=== PATIENT | female | born 1975 | race Caucasian/White ===

== ENCOUNTER 2020-05-12 04:38 | Emergency (ER) | payer OTHER, SELFPAY ==
[2020-05-12 04:40] VITALS: BP 155/78; PULSE 103; RESP 14; TEMP 36.8; O2SAT 99
[2020-05-12] MEDS: HYDROcodone/acetaminophen (*CRX) 5-325 MG TABLET 1 TAB PO (05:08)
--- NOTE | 2020-05-12 05:11 | ED.GENADULT ---
HPI - General Adult General Chief complaint: Upper Respiratory Infection Stated complaint: Sinus pain Time Seen by Provider: 05/12/20 04:43 History of Present Illness HPI narrative: Patient is a 45-year-old female who presents the ER with facial pain. Patient diagnosed with a sinus infection by urgent care 3 days ago. She is taking doxycycline and ibuprofen and pain is still present in the left maxillary sinus. Refers to her ear on the left side. No change in vision or hearing. Patient is able to breathe through her nose and has been using saline nasal spray and Zyrtec. She is unable to sleep tonight and would like something to help with her pain. Related Data Allergies Allergy/AdvReac Type Severity Reaction Status Date / Time Penicillins Allergy Unknown Hives Verified 05/12/20 04:44 clarithromycin Allergy Unknown Verified 05/12/20 04:44 Macrolide Antibiotics Allergy Unknown Verified 05/12/20 04:44 Review of Systems Constitutional: Constitutional: Denies chills and Denies fever(s) ENT: Reports nasal congestion and Denies sore throat PMFSH Past Medical History Medical History (Updated 05/12/20 @ 05:14 by Abe Ball MD) Healthy female adult Surgical History Surgical History (Updated 05/12/20 @ 05:12 by Abe Ball MD) History of section Social History Social History Gender identity (if verbalized by the patient): Female Exam Narrative: Exam Narrative: GENERAL: Well-appearing, well-nourished, and in no acute distress. HEAD: Normocephalic, atraumatic. ENT: Nares clear, no rhinorrhea or epistaxis. Mucous membranes moist. TMs normal bilaterally. Mild left maxillary and frontal sinus tenderness NEURO: Alert and oriented x3. PSYCH: Normal mood and affect. Course Course Emergency Course: codie d/c. Vital Signs Vital signs: Vital Signs Temperature 98.2 F 05/12/20 04:40 Pulse Rate 103 H 05/12/20 04:40 Respiratory Rate 14 05/12/20 04:40 Blood Pressure 155/78 H 05/12/20 04:40 Pulse Oximetry 99 05/12/20 04:40 Temperature 98.2 F 05/12/20 04:40 Pulse Rate 103 H 05/12/20 04:40 Respiratory Rate 14 05/12/20 04:40 Blood Pressure 155/78 H 05/12/20 04:40 Pulse Oximetry 99 05/12/20 04:40 Medical Decision Making Vital Signs Vital Signs: Vital Signs Temperature 98.2 F 05/12/20 04:40 Pulse Rate 103 H 05/12/20 04:40 Respiratory Rate 14 05/12/20 04:40 Blood Pressure 155/78 H 05/12/20 04:40 Pulse Oximetry 99 05/12/20 04:40 Temperature 98.2 F 05/12/20 04:40 Pulse Rate 103 H 05/12/20 04:40 Respiratory Rate 14 05/12/20 04:40 Blood Pressure 155/78 H 05/12/20 04:40 Pulse Oximetry 99 05/12/20 04:40 Discharge Plan Discharge Clinical Impression: Sinus pain Patient Disposition: Home, Self-Care Condition: Stable Instructions: Sinusitis (ED) Additional Instructions: Return to the ER if you cannot breathe, you have facial swelling, or you have other concerns. Take Tylenol and ibuprofen as needed for pain. Follow-up/Referrals: Natalia Deluca MD [Primary Care Provider] -
== END 2020-05-12 05:37 | disposition home or self-care (01) ==
PROVIDERS: Emergency Provider Emergency Medicine; PCP Obstetrics & Gynecology Gynecology
DX: J34.89 Other specified disorders of nose and nasal sinuses (principal)
CPT/HCPCS: 99283; A9270

== ENCOUNTER 2021-07-10 00:46 | Day surgery (SDC) | payer OTHER, SELFPAY ==
[2021-07-05 14:16] VITALS: BMI 25.1
--- NOTE | 2021-07-05 14:25 | PC.NURSE ---
Report to the Outpatient Waiting Room, entrance under the green pavilion located off [facility], at time 0615 on date 07/10/21. OR Time: 0815. - You and your visitor will be asked a series of questions to screen for COVID 19 for your protection. - A mask is required within the hospital. - Only one visitor is allowed at this time. Patient visitors will be guided where to wait when not with patient. Preoperative COVID Testing Requirements: No COVID Test needed if: (proof is required; if not received patient will have Rapid Test prior to entry) - Patient has received COVID Vaccine at least 14 days prior to procedure date or - Patient has positive COVID test result within last 90 days of surgery date. COVID Test needed if above criteria is not met If not COVID vaccinated a COVID test must be conducted within 72 hours of surgery and patient is asked to isolate self from time of testing until procedure. You will go to the [facility] for your COVID testing. The [facility] site is located at the corner of [address] [facility]. You will only be called if COVID results are positive and your surgeon may reschedule your elective surgery date. Patients may have clear liquids (water, carbonated beverages, clear teas, apple juice) until 3 hours prior to surgery with a maximum of 20 ounces. - No food from midnight until time of surgery - Infants may have breast milk until 4 hours before surgery, infant formula 6 hours prior to surgery. - Children will be allowed to drink immediately following surgery. If applicable, please bring a bottle or sippy cup to assist with drinking. Juice, water, soda, and popsicles are readily available. For infants on formula, please bring formula the day of surgery. Pacifiers are allowed. Take the following medications with a SIP of water the morning of surgery: LEVOXYL, EFFEXOR, WELLBUTRIN, VALTREX, INSULIN PUMP Medications to discontinue per physician: VITAMINS/SUPPLEMENTS Date to take last dose: 07/06/[address] GIRALDO Please no make-up, nail upper sorbian, hairspray, perfume, deodorant, or body powder the day of surgery. No jewelry (including any body piercings) or valuables the day of surgery, leave them at home. Please take a shower or bath the night before, or the morning of, surgery with an antibacterial soap. Wear comfortable, loose fitting clothing. Children are encouraged to wear pajamas. - Jewelry must be removed prior to entering the operating room. Rings and piercings that are not removed may be cut off. - The hospital will not accept responsibility for valuables. - Please leave all valuables, including medications, at home the day of surgery. If you are going home after surgery, a licensed truck driver helper must drive you home. - NO public transportation without another adult. - We recommend that an adult stay with you for 24 hours following discharge. - We also recommend that you do not drive, make important decision, drink alcoholic beverages, or take any drugs that were not prescribed by your health care provider for at least 24 hours after your discharge time. For Pediatric surgeries, we recommend two adults accompany the child home (only one inside the building at this time). Follow any additional instructions given to you from your surgeon. Telephone instructions given to KATHERINE COLLIER and asked if any additional questions and then verbalized understanding. Patient advised to call surgeon office or pre surgery nurse liaison [phone] if any additional questions.
--- NOTE | 2021-07-10 07:03 | WPDHPUPDATE1 ---
History and Physical Update Update Date/Time: 07/10/21 07:03 History and Physical has been reviewed, including an updated exam of the patient. There are NO changes in the patient's condition. Risks, benefits, and alternatives have been discussed and questions answered. Patient agrees to proceed with procedure.
--- NOTE | 2021-07-10 07:03 | PM.HPGS ---
History of Present Illness History of Present Illness Consent: Risks, benefits, and alternatives have been discussed and questions answered. Patient agrees to proceed with procedure. Chief complaint: Ascus Positive Endocervical Cells Narrative: Fadia Harding is a 46 year old female with persistently abnormal Pap smears over the last 5 years. Patient continues to have atypical squamous cells of undetermined significance with positive HPV 16. Recent colposcopy reveals atypia in the endocervix and 5:00 a.m. and 9:00 a.m. biopsies. Due to her difficult vaginal exam the plan is to proceed in the operating room under anesthesia with a LEEP and top-hat. Risks of infection, bleeding, persistent and recurrent disease were reviewed. Patient voices understanding and agrees to proceed. Review of Systems Review of Systems: not repeated day of surgery; patient states no changes in status PMFSH Past Medical History Medical History (Updated 07/10/21 @ 07:08 by Natalia Deluca MD) Depression Hypothyroid Prior hyperthyroid Juvenile rheumatoid arthritis Type 1 diabetes Surgical History Surgical History (Updated 07/10/21 @ 07:07 by Natalia Deluca MD) History of section X2 Social History Social History Smoking status: Never smoker Alcohol intake: current Drinks per week: 4 Substance use: never Substance use type: does not use Living arrangements: with family Gender identity (if verbalized by the patient): Female Spiritual care concerns: No Meds Home Medications and Allergies Home Medications Medication Instructions Recorded Confirmed Type aspirin [Baby Aspirin] 81 mg PO DAILY 07/05/21 07/10/21 History bupropion HCl [Wellbutrin XL] 150 mg PO QAM 07/05/21 07/05/21 History cetirizine [Zyrtec] 10 mg PO DAILY 07/05/21 07/05/21 History insulin lispro [Humalog U-100 See Rx Instructions .ROUTE .COMPLEX 07/05/21 07/05/21 History Insulin] levothyroxine [Levoxyl] 100 mcg PO DAILY 07/05/21 07/05/21 History prenat.vits,vazquez,qwy-htmp-gtbus 1 tablet PO DAILY 07/05/21 07/10/21 History [ Vitamin] valacyclovir [Valtrex] 500 mg PO DAILY 07/05/21 07/05/21 History venlafaxine [Effexor XR] 75 mg PO DAILY 07/05/21 07/05/21 History Allergies Allergy/AdvReac Type Severity Reaction Status Date / Time Penicillins Allergy Unknown Hives Verified 07/10/21 06:58 clarithromycin Allergy Gastrointestinal Verified 07/10/21 06:58 Upset Macrolide Antibiotics Allergy Gastrointestinal Verified 07/10/21 06:58 Upset Exam Const: General: healthy appearing and alert Orientation/consciousness: patient oriented x3 Resp: Effort & Inspection: normal respiratory effort Auscultation: clear to auscultation bilaterally Cardio: Rate: regular rate Rhythm: regular rhythm GI: GI Palp: Yes Soft to palpation, No Tenderness to palpation present (GI) and No Palpable mass present : External Female Exam: normal external appearance Speculum Exam - Vagina: normal vaginal discharge and other (Vaginal adhesions) Speculum Exam - Cervix: normal appearance of the cervix and Other cervical findings present (Difficult to visualize) Bimanual exam- vagina & uterus: uterine size normal and consistency normal Bimanual Exam- Adnexa, other: normal adnexae and No adnexal tenderness Neuro: General: patient oriented x3 Assessment and Plan Assessment and plan (1) ASCUS with positive high risk HPV: Status: Acute Assessment and Plan: Plan to proceed with LEEP and top hat
[2021-07-10] MEDS: ACETAMINOPHEN 500 MG TABLET 1000 MG PO (07:04)
[2021-07-10 07:06] VITALS: BP 134/67; PULSE 109; RESP 18; TEMP 36.1; O2SAT 99
[2021-07-10 07:07] VITALS: BMI 24.2
--- NOTE | 2021-07-10 07:08 | P.PNAN_ITS ---
Anes - Initial Pre Proc Eval Procedure: Operation Date: 07/10/21 08:15 Proposed Procedures p Loop Electrical Excision Procedure, Top Hat - Natalia Deluca MD Date/Time: 07/10/21 07:08 Surgeon: Natalia Deluca MD Pre Op Diagnosis: Ascus Positive Endocervical Cells Patient Data Age: 46 Gender: F Height: 1.75 m Weight: 74.3 kg Last Vital Signs Temp 36.1 C L 07/10/21 07:06 Pulse 109 H 07/10/21 07:06 Resp 18 07/10/21 07:06 BP 134/67 07/10/21 07:06 Pulse Ox 99 07/10/21 07:06 Allergies Allergy/AdvReac Type Severity Reaction Status Date / Time Penicillins Allergy Unknown Hives Verified 07/10/21 06:58 clarithromycin Allergy Gastrointestinal Verified 07/10/21 06:58 Upset Macrolide Antibiotics Allergy Gastrointestinal Verified 07/10/21 06:58 Upset Home Medications Medication Instructions Recorded Confirmed Type aspirin [Baby Aspirin] 81 mg PO DAILY 07/05/21 07/10/21 History bupropion HCl [Wellbutrin XL] 150 mg PO QAM 07/05/21 07/05/21 History cetirizine [Zyrtec] 10 mg PO DAILY 07/05/21 07/05/21 History insulin lispro [Humalog U-100 See Rx Instructions .ROUTE .COMPLEX 07/05/21 07/05/21 History Insulin] levothyroxine [Levoxyl] 100 mcg PO DAILY 07/05/21 07/05/21 History prenat.vits,vazquez,ktl-ukxa-esemf 1 tablet PO DAILY 07/05/21 07/10/21 History [ Vitamin] valacyclovir [Valtrex] 500 mg PO DAILY 07/05/21 07/05/21 History venlafaxine [Effexor XR] 75 mg PO DAILY 07/05/21 07/05/21 History Patient hx anesthesia problems: none Family hx anesthesia problems: none Results Review: All pre-operative results and documents have been reviewed as part of the pre-operative evaluation. [facility] Past Medical History Medical History Depression Hypothyroid Prior hyperthyroid Juvenile rheumatoid arthritis Type 1 diabetes Surgical History Surgical History History of section X2 Social History Social History Smoking status: Never smoker Alcohol intake: current Drinks per week: 4 Substance use: never Substance use type: does not use Living arrangements: with family Gender identity (if verbalized by the patient): Female Spiritual care concerns: No Anes - Eval Final PreProcedure Day of Procedure 07/10/21 07:08 Patient weight: normal Heart: regular rate and rhythm Lungs: clear to auscultation Airway: Mallampati scale class II Neurological: alert and oriented Last oral intake: >/= 8 hours ASA classification: III Emergent: no Anesthetic plan: proceed Anesthesia type and monitoring: general GIVS and standard monitoring Results Review: All pre-operative results and documents have been reviewed as part of the pre-operative evaluation. Informed Consent: The patient's anesthetic plan and its attendant risks and benefits were discussed with the patient/family/POA. Questions were solicited and answers provided to the satisfaction of the patient/family/POA.
[2021-07-10 07:20] LABS: Glucose Point of Care 185 mg/dl (65-105)
[2021-07-10] MEDS: LACTATED RINGERS 1,000 ML 30 ML IV CONT (07:33)
[2021-07-10] MEDS: KETOROLAC 30 MG/ML VIAL (*BKC) IV PUSH (08:37)
--- NOTE | 2021-07-10 08:39 | W.PM.PROC2 ---
Procedure Note - Detailed Date of Procedure 07/10/21 Pre-op Diagnosis Ascus persistent Vaginal adhesions Post-op Diagnosis same Procedure Performed LEEP with top-hat Surgeon Natalia Deluca MD Anesthesia MAC and local Findings Posterior right vaginal adhesions. Very difficult to visualize small nulliparous cervix. Description of Procedure The patient was taken to the operating room and placed under anesthesia in the dorsal lithotomy position. She was prepped externally and draped. Coated bivalve speculum was placed and was noted to be too large. A Gann was requested and only a long appears and could be found. This was too difficult to reach the cervix with the LEEP probe. A pediatric Gann was found and able to be utilized. The cervix was injected in each quadrant with 1% lidocaine. The posterior lip is very difficult to visualize. A 1x1 loop anterior lip and posterior lip were taken. A 1x1 top hat was attempted and due to the size of the cervix only a small portion of endocervix was taken. Monsel's was applied to the cone bed. Specimens were marked at 12:00 p.m. for the anterior and 6:00 a.m. for the posterior lip. All instruments are removed. Patient is awakened from anesthesia and taken to recovery in stable condition. Sponge, needle, and instrument counts are correct per the OR staff. Estimated Blood Loss 5 Drains No Packing No Pathology yes (Anterior and posterior LEEP with top hat) Complications No immediate complications Condition stable Disposition PACU
[2021-07-10] MEDS: LIDO 1%/EPINEPHRINE 1:100,000 50 ML VIAL 10 ML INFILTRATE (08:40)
[2021-07-10 08:44] VITALS: BP 103/47; PULSE 85; RESP 12; O2SAT 100
[2021-07-10 09:12] LABS: Glucose Point of Care 187 mg/dl (65-105)
[2021-07-10 09:15] VITALS: BP 115/65; PULSE 95
[2021-07-10 09:40] VITALS: BP 103/61; PULSE 82
== END 2021-07-10 09:50 | disposition home or self-care (01) ==
PROVIDERS: PCP Internal Medicine; Visit Provider Obstetrics & Gynecology Gynecology
PROC: 0UBC7ZZ Excision of Cervix, Via Natural or Artificial Opening (ICD-10-PCS; CPT 57522; principal; 2021-07-10 08:15)
DX: R87.610 Atypical squamous cells of undetermined significance on cytologic smear of cervix (ASC-US) (principal); R87.810 Cervical high risk human papillomavirus (HPV) DNA test positive; N89.5 Stricture and atresia of vagina; E03.9 Hypothyroidism, unspecified; F32.9 Major depressive disorder, single episode, unspecified; E10.8 Type 1 diabetes mellitus with unspecified complications; M08.00 Unspecified juvenile rheumatoid arthritis of unspecified site; Z79.82 Long term (current) use of aspirin; Z79.4 Long term (current) use of insulin
CPT/HCPCS: 57522; 82948; 88305; A9270; J1885; J2250; J2405; J2704; J3010; J7120

== ENCOUNTER 2022-06-06 08:42 | Emergency (ER) | payer OTHER, SELFPAY ==
--- NOTE | ~2022-06-06 | CT_ITS ---
EXAMINATION: CT abdomen pelvis w con DATE: 06/06/2022 09:34 INDICATION: Epigastric abdominal tenderness. TECHNIQUE: Computed tomography (CT) of the abdomen and pelvis was performed with 100 mL Omnipaque 350 intravenous contrast. Automated exposure control and iterative reconstruction technique were employe d. The dose-length product was 404.87 mGy-cm. COMPARISON: None. FINDINGS: The visualized portions of the lung bases demonstrate mild atelectasis. No pleural effusion . The heart size is normal. No pericardial effusion. There is a 4 mm cyst in the liver. The gallbladd er, spleen, pancreas, adrenal glands, and kidneys are normal. There are no dilated loops of bowel. Th e appendix is normal. There is a jejunal intussusception with length of 3.4 cm. There are no patholog ically enlarged lymph nodes. There is no free intraperitoneal fluid. There is severe lower lumbar spo ndylosis. IMPRESSION: 1. Short jejunal intussusception, which may be transient. Reviewed, dictated and finalized at location A.
[2022-06-06 08:47] VITALS: BP 124/64; PULSE 99; RESP 16; TEMP 36.4; O2SAT 100
[2022-06-06 08:57] LABS: Basophils Absolute Auto 0.1 K/mm3 (0.0-0.1); Basophils Percent Auto 0.5 % (0.2-1.2); Eosinophils Absolute Auto 0.1 K/mm3 (0-0.3); Hemoglobin 15.3 g/dL (12.0-15.0); Immature Granulocyte Absolute 0.03 K/mm3 (0.00-0.031); Immature Granulocyte Percent A 0.3 % (0-0.5); Lymphocytes Absolute Auto 3.12 K/mm3 (0.9-3.2); Lymphocytes Percent Auto 27.5 % (18.3-44.2); Mean Corpuscular HGB Conc 33.3 g/dl (32-36); Mean Corpuscular Hemoglobin 32.2 pg (26-34); Mean Corpuscular Volume 96.8 fl (80-100); Monocytes Absolute Auto 0.7 K/mm3 (0.1-0.6); Monocytes Percent Auto 6.1 % (2.6-8.5); Neutrophils Absolute Auto 7.4 K/mm3 (1.3-6.7); Neutrophils Percent Auto 64.6 % (45.5-73.1); Platelet Count Result 437 k/mm3 (150-375); Red Blood Count 4.75 M/mm3 (4.2-5.4); Red Cell Distribution Width 12.7 % (11.5-14.5); White Blood Count 11.4 K/mm3 (4.5-10.0)
--- NOTE | 2022-06-06 09:06 | ED.ABDPAIN ---
HPI - Abdominal Pain General Chief Complaint: Abdominal Pain Stated Complaint: abdominal pain x 2 days Time Seen by Provider: 06/06/22 08:55 History of Present Illness HPI narrative: Patient is a healthy 47-year-old female with a history of type 1 diabetes, has insulin pump in place, here for evaluation of epigastric abdominal discomfort for the past 2 days. Patient states the pain is intermittent in nature, but when it is there it is severe, causing her to keel over in pain. Described as a cramp, starts in her epigastrium and radiates lower into her suprapubic region. Reports nausea and chills but no vomiting, has taken her temperature and has not had a fever. Bowel movements have been normal. Reports a sharp pain with urination. No urinary urgency, frequency, hematuria, back pain. Related Data Home Medications Medication Instructions Recorded Confirmed aspirin 81 mg chewable tablet 81 mg PO DAILY 07/05/21 07/10/21 bupropion HCl 150 mg 24 hr tablet, 150 mg PO QAM 07/05/21 07/05/21 extended release (Wellbutrin XL) cetirizine 10 mg tablet (Zyrtec) 10 mg PO DAILY 07/05/21 07/05/21 insulin lispro 100 unit/mL See Rx Instructions .Route .COMPLEX 07/05/21 07/05/21 subcutaneous solution (Humalog U-100 Insulin) levothyroxine 100 mcg tablet 100 mcg PO DAILY 07/05/21 07/05/21 (Levoxyl) prenat.vits,vazquez,baj-asix-kddsa 1 tablet PO DAILY 07/05/21 07/10/21 valacyclovir 500 mg tablet 500 mg PO DAILY 07/05/21 07/05/21 (Valtrex) venlafaxine 75 mg capsule,extended 75 mg PO DAILY 07/05/21 07/05/21 release 24 hr (Effexor XR) Allergies Allergy/AdvReac Type Severity Reaction Status Date / Time Penicillins Allergy Unknown Hives Verified 06/06/22 08:43 clarithromycin AdvReac Gastrointestinal Verified 06/06/22 08:43 Upset Macrolide Antibiotics AdvReac Gastrointestinal Verified 06/06/22 08:43 Upset Review of Systems Review of Systems: Gen: Reports chills. Denies fevers Eyes: Denies eye pain or visual change ENT: Denies congestion Respiratory: Denies shortness of breath or cough CV: Denies chest pain or palpitations GI: Reports lower abdominal pain and nausea. Denies emesis or diarrhea : denies burning, urgency, frequency or hematuria Musculoskeletal: Denies back pain or muscle pain Neuro: Denies numbness, tingling, weakness or focal weakness Skin: Denies rash Except as documented, all other systems reviewed and negative PMFSH Past Medical History Medical History Depression Hypothyroid Prior hyperthyroid Juvenile rheumatoid arthritis Type 1 diabetes Surgical History Surgical History History of section X2 Social History Social History Smoking status: Never smoker Alcohol intake: current Drinks per week: 4 Substance use: never Substance use type: does not use Gender identity (if verbalized by the patient): Female Spiritual care concerns: No Exam Narrative: APPEARANCE: Well appearing, no pain in distress, well-nourished. Head: Normocephalic and atraumatic. EYES: PERRLA/EOMI, conjunctivae clear NOSE: No nasal drainage EARS: External ear normal in appearance THROAT: Oropharynx is clear. Mucous membranes are moist. NECK: Supple. No adenopathy, no masses. RESPIRATORY: Airway patent, respirations nonlabored. Clear to auscultation bilaterally, no rales, rhonchi, wheezing. CARDIOVASCULAR: Regular rate and rhythm without murmurs, rubs, or gallops. ABDOMINAL: Normoactive bowel sounds. Soft, nontender, nondistended. No rebound tenderness or guarding. MUSCULOSKELETAL: Extremities are warm and well-perfused. Moves all extremities well. No edema. NEURO: Normal speech. No focal neurologic deficits. SKIN: Skin is warm and dry. No rashes. PSYCHIATRIC: Normal affect/mood. Course Consultations Consulta
[2022-06-06 09:07] LABS: Appearance Urine Cloudy (Clear); Bilirubin Urine 1+ (Negative); Blood Urine 1+ (Negative); Color Urine Yellow (Yellow); Glucose Urine UA 2+ mg/dL (Negative); Ketones Urine 2+ mg/dL (Negative); Leukocyte Esterase Ur 1+ LEU/UL (Negative); Nitrate Urine Negative (Negative); Protein Urine 2+ mg/dL (Negative); Specific Grav Ur 1.025 (1.001-1.035)
[2022-06-06 09:08] LABS: Alanine Aminotransferase 22 U/L (6-35); Alkaline Phosphatase 93 U/L (38-126); Anion Gap 16 mmol/L (8-16); Aspartate Amino Transferase 28 U/L (14-36); Bilirubin,Total 0.8 mg/dL (0.2-1.3); Blood Urea Nitrogen 9 mg/dL (7-17); Calcium 9.1 mg/dL (8.4-10.2); Carbon Dioxide 26 mmol/L (22-30); Chloride 94 mmol/L (98-107); Estimated CRCL calculation 77 ml/min; Estimated Glomerular Filt Rate > 60; Glucose 246 mg/dL (65-110); Lipase 33 U/L (23-300); Potassium 3.2 mmol/L (3.4-5.0); Sodium 136 mmol/L (137-145)
[2022-06-06 09:14] LABS: Bacteria Urine Trace /hpf; Mucus Urine Rare /lpf; Squamous Epithelial Cell Urine Many /hpf (Few); WBC Urine >75 /hpf
[2022-06-06 09:19] LABS: Add Urine Microscopic? YES
[2022-06-06 09:30] LABS: Lactic Acid Reflex 2.3 mmol/L (0.7-2.0)
[2022-06-06] MEDS: SODIUM CHLORIDE 0.9% IV 1,000 ML 999 ML IV CONT (09:37)
[2022-06-06 10:57] LABS: Fractional Inspired Oxygen 21 %; HCO3 VBG 22.7 mEq/l (24.0-30.0); PCO2 VBG 35.5 mmHg (42.0-48.0)
[2022-06-06 10:59] LABS: Device ROOM AIR; PO2 VBG < 27.0 mmHg (35.0-45.0); pH VBG 7.424 (7.300-7.400)
[2022-06-06] MEDS: POTASSIUM CHLORIDE 20 MEQ PACKET (FOR LIQUID) PO (11:16)
[2022-06-06 12:19] LABS: Reflex Lactic Acid Yes or No Add Lactic
== END 2022-06-06 11:10 | disposition home or self-care (01) ==
PROVIDERS: Physician Assistant; Emergency Provider Emergency Medicine; PCP Internal Medicine
DX: N39.0 Urinary tract infection, site not specified (principal); E10.8 Type 1 diabetes mellitus with unspecified complications; E03.9 Hypothyroidism, unspecified; M08.00 Unspecified juvenile rheumatoid arthritis of unspecified site; F32.A Depression, unspecified; Z96.41 Presence of insulin pump (external) (internal); Z79.4 Long term (current) use of insulin; Z79.82 Long term (current) use of aspirin; K56.1 Intussusception
CPT/HCPCS: 36415; 74177; 80053; 81001; 81025; 82803; 83605; 83690; 85025; 87086; 87088; 96360; 99284; A9270; J7030; Q9967

== ENCOUNTER → 2023-04-11 16:03 | Outpatient (CLI) | payer OTHER, SELFPAY ==
--- NOTE | ~2023-04-11 | MM_ITS ---
EXAMINATION: MM screening angy BI w shahid HISTORY: Screening mammogram TECHNIQUE: Craniocaudal and mediolateral oblique 3-D tomosynthesis images were obtained and synthetic 2-D images were generated. CAD analysis was submitted and interpreted. COMPARISON: 03/10/2019 and 04/03/2017 BREAST PARENCHYMAL COMPOSITION:There are scattered areas of fibroglandular density. FINDINGS: Benign lymph nodes at the upper, outer right breast. No suspicious mass, calcification, or architectural distortion are identified in either breast to suggest malignancy. There has been no abad picious interval change. IMPRESSION: No mammographic evidence of malignancy. Recommend routine screening mammography in one year. BI-RADS Category 2: Benign finding(s). Reviewed, dictated and finalized at location .
== END ==
PROVIDERS: PCP Internal Medicine; Visit Provider Internal Medicine
DX: Z12.31 Encounter for screening mammogram for malignant neoplasm of breast (principal)
CPT/HCPCS: 77063; 77067

== ENCOUNTER 2023-10-30 09:41 | Emergency (ER) | payer OTHER, SELFPAY ==
--- NOTE | ~2023-10-30 | XR_ITS ---
EXAMINATION: XR sacrum coccyx min 2V DATE: 10/30/2023 13:07 INDICATION: Tailbone pain post fall TECHNIQUE: Frontal, angled frontal and lateral views of the sacrum and coccyx were obtained. COMPARISON: None. FINDINGS: Bone alignment is normal. Sacral arches are intact. No fractures identified. Mild bilateral sacroilia c osteoarthritis. Moderate disc height loss with left-sided predominance at L5-S1. Bilateral hip join t spaces appear normal. IMPRESSION: 1. No acute osseous abnormality. Reviewed, dictated and finalized at location A.
--- NOTE | ~2023-10-30 | XR_ITS ---
EXAMINATION: XR chest 2V DATE: 10/30/2023 13:06 INDICATION: Bilateral rib pain post fall TECHNIQUE: PA and lateral views of the chest were obtained. COMPARISON: None FINDINGS: The lungs are clear with no focal airspace opacities, pulmonary edema, pleural effusion or pneumothor ax. The cardiomediastinal silhouette is normal. Age indeterminate compression fracture with 50% anter ior vertebral body height loss of an upper thoracic vertebral body, likely at T4 or T5. IMPRESSION: 1. No acute cardiopulmonary disease. 2. Age-indeterminate compression fracture in the upper thoracic spine. Reviewed, dictated and finalized at location A.
--- NOTE | 2023-10-30 09:46 | PC.NURSE ---
Patient placed in c collar d/t fall down approx 7 stairs. Patient reports unsure if she has neck//head pain or tenderness.
--- NOTE | 2023-10-30 09:47 | PC.NURSE ---
Patient lung sounds auscultated. Clear to anterior and posterior lung mills.
[2023-10-30 10:46] VITALS: BP 137/74; PULSE 90; RESP 22; TEMP 36.1; O2SAT 100
[2023-10-30] MEDS: ACETAMINOPHEN 500 MG TABLET 1000 MG PO (12:20)
--- NOTE | 2023-10-30 12:58 | ED.FALL ---
HPI - Fall General Chief Complaint: Fall Stated Complaint: fall down stairs Time Seen by Provider: 10/30/23 12:02 History of Present Illness HPI Narrative: 48-year-old female presenting to the emergency department after having a ground level fall. Patient states she was walking down stairs while wearing socks and fell forward down the stairs. Patient states she did not strike her head denies any loss of consciousness. Patient did complain of bilateral rib pain and tailbone pain after the fall. Patient was able to self extricate after the fall and presented emergency department by private. Related Data Home Medications Medication Instructions Recorded Confirmed aspirin 81 mg chewable tablet 81 mg PO DAILY 07/05/21 07/10/21 bupropion HCl 150 mg 24 hr tablet, 150 mg PO QAM 07/05/21 07/05/21 extended release (Wellbutrin XL) cetirizine 10 mg tablet (Zyrtec) 10 mg PO DAILY 07/05/21 07/05/21 insulin lispro 100 unit/mL See Rx Instructions .Route .COMPLEX 07/05/21 07/05/21 subcutaneous solution (Humalog U-100 Insulin) levothyroxine 100 mcg tablet 100 mcg PO DAILY 07/05/21 07/05/21 (Levoxyl) prenat.vits,vazquez,ovn-anka-cpfzh 1 tablet PO DAILY 07/05/21 07/10/21 valacyclovir 500 mg tablet 500 mg PO DAILY 07/05/21 07/05/21 (Valtrex) venlafaxine 75 mg capsule,extended 75 mg PO DAILY 07/05/21 07/05/21 release 24 hr (Effexor XR) Allergies Allergy/AdvReac Type Severity Reaction Status Date / Time Penicillins Allergy Unknown Hives Verified 10/30/23 11:04 clarithromycin AdvReac Gastrointestinal Verified 10/30/23 11:04 Upset Macrolide Antibiotics AdvReac Gastrointestinal Verified 10/30/23 11:04 Upset Review of Systems Review of Systems: All systems reviewed & are unremarkable except as noted in HPI and below PMFSH Past Medical History Medical History Depression Hypothyroid Prior hyperthyroid Juvenile rheumatoid arthritis Type 1 diabetes Surgical History Surgical History History of section X2 Social History Social History Smoking status: Never smoker Alcohol intake: current Drinks per week: 4 Substance use: never Substance use type: does not use Living arrangements: with family Gender identity (if verbalized by the patient): Female Spiritual care concerns: No Exam Narrative: APPEARANCE: Well appearing, no pain, no distress, well-nourished. HEAD: normocephalic, atraumatic. EYES: PERRLA/EOMI, conjunctivae clear. NOSE: Normal no drainage EARS:TMS clear with good light reflex. THROAT: Pharynx clear, no exudate. NECK: Supple. No adenopathy, no masses. RESPIRATORY: Airway patent, respirations nonlabored. Clear to auscultation bilaterally, no rales, rhonchi, wheezing. CARDIOVASCULAR: Regular rate and rhythm without murmurs rubs or gallops. ABDOMINAL: Soft, nontender, nondistended, normal bowel sounds MUSCULOSKELETAL: Moves all extremities. Strength/ROM intact, No edema, No calf tenderness. NEURO: Alert. Cranial nerves II through XII intact. Grossly intact SKIN: Warm, dry. Normal Color Course Course Emergency Course: Patient was discharged to home Vital Signs Vital signs: Vital Signs Temperature 96.9 F L 10/30/23 10:46 Pulse Rate 90 10/30/23 10:46 Respiratory Rate 22 H 10/30/23 10:46 Blood Pressure 137/74 10/30/23 10:46 Pulse Oximetry 100 10/30/23 10:46 Oxygen Delivery Room Air 10/30/23 10:46 Temperature 98.0 F 10/30/23 13:43 Pulse Rate 80 10/30/23 13:43 Respiratory Rate 20 10/30/23 13:43 Blood Pressure 132/80 10/30/23 13:43 Pulse Oximetry 100 10/30/23 13:43 Oxygen Delivery Room Air 10/30/23 10:46 MDM - Fall MDM Narrative Medical decision making narrative: 48-year-old female presenting to the ED for evaluation after having a reggie
[2023-10-30 13:43] VITALS: BP 132/80; PULSE 80; RESP 20; TEMP 36.7; O2SAT 100
== END 2023-10-30 14:15 | disposition home or self-care (01) ==
PROVIDERS: Emergency Provider Emergency Medicine; PCP Internal Medicine
DX: S39.92XA Unspecified injury of lower back, initial encounter (principal); E10.8 Type 1 diabetes mellitus with unspecified complications; E03.9 Hypothyroidism, unspecified; M08.00 Unspecified juvenile rheumatoid arthritis of unspecified site; Z79.82 Long term (current) use of aspirin; Z79.4 Long term (current) use of insulin; W10.9XXA Fall (on) (from) unspecified stairs and steps, initial encounter
CPT/HCPCS: 71046; 72220; 99284; A9270

== ENCOUNTER 2023-11-28 09:37 | Inpatient (IN) | payer OTHER, SELFPAY ==
[2023-11-28] VITALS (29 sets, daily range): BP systolic 104–125; BP diastolic 45–63; PULSE 76–98; RESP 10–19; TEMP 36.2–36.8; O2SAT 95–100; BMI 22.1
[2023-11-28 09:48] LABS: Glucose Point of Care > 500 mg/dl (65-105)
[2023-11-28 10:08] LABS: Basophils Absolute Auto 0.1 K/mm3 (0.0-0.1); Basophils Percent Auto 0.4 % (0.2-1.2); Hematocrit 45.3 % (37.0-47.0); Hemoglobin 13.9 g/dL (12.0-15.0); Immature Granulocyte Absolute 0.08 K/mm3 (0.00-0.031); Immature Granulocyte Percent A 0.5 % (0-0.5); Lymphocytes Percent Auto 7.8 % (18.3-44.2); Mean Corpuscular HGB Conc 30.7 g/dl (32-36); Mean Corpuscular Hemoglobin 31.2 pg (26-34); Mean Corpuscular Volume 101.6 fl (80-100); Monocytes Absolute Auto 0.6 K/mm3 (0.1-0.6); Monocytes Percent Auto 3.8 % (2.6-8.5); Neutrophils Absolute Auto 14.6 K/mm3 (1.3-6.7); Neutrophils Percent Auto 87.5 % (45.5-73.1); Platelet Count Result 490 k/mm3 (150-375); Red Blood Count 4.46 M/mm3 (4.2-5.4); Red Cell Distribution Width 13.4 % (11.5-14.5); White Blood Count 16.6 K/mm3 (4.5-10.0)
[2023-11-28 10:08] LABS: Base Excess ABG -22.6 mEq/l (+/-2.0); Carboxyhemoglobin 1.3 % THb (0-2.0); Fractional Inspired Oxygen 21 %; HCO3 ABG 5.1 mEq/l (22.0-26.0); Methemoglobin ABG 0.4 %THb (0-1.5); Oxygen Content ABG 18.6 %vol (16.0-22.0); Oxyhemoglobin 95.6 % THb (90.0-100.0); PO2 ABG 119.5 mmHg (80.0-100.0); PO2 FiO2 Ratio Arterial Blood 5.69 %; Reduced Hemoglobin 2.7 %THb (0-5.0); Total Hemoglobin 13.7 g/dL (12.0-18.0)
[2023-11-28 10:09] LABS: pH ABG 7.096 (7.350-7.450)
[2023-11-28 10:10] LABS: Device ROOM AIR; PCO2 ABG 16.9 mmHg (35.0-45.0); Site Drawn RIGHT BRACHIAL
[2023-11-28] MEDS: ONDANSETRON INJ 4 MG/2 ML VIAL (10:14)
[2023-11-28] MEDS: SODIUM CHLORIDE 0.9% IV 1,000 ML 999 ML (10:14)
[2023-11-28] MEDS: INSULIN HUMAN REGULAR (*BKC) 100 UNITS/ML 8 UNITS IV PUSH (10:18)
[2023-11-28 10:31] LABS: Alanine Aminotransferase 23 U/L (6-35); Albumin Level 5.2 g/dL (3.5-5.1); Alkaline Phosphatase 173 U/L (38-126); Anion Gap 25 mmol/L (4-12); Aspartate Amino Transferase 25 U/L (14-36); Bilirubin,Total 0.9 mg/dL (0.2-1.3); Blood Urea Nitrogen 21 mg/dL (7-17); Calcium 10.2 mg/dL (8.4-10.2); Carbon Dioxide 6 mmol/L (22-30); Chloride 100 mmol/L (98-107); Estimated Glomerular Filt Rate 43; Glucose 557 mg/dL (65-110); Magnesium 2.7 mg/dL (1.6-2.3); Phosphorus 5.9 mg/dL (2.5-4.5); Potassium 6.5 mmol/L (3.4-5.0); Sodium 131 mmol/L (137-145)
--- NOTE | 2023-11-28 10:32 | PC.NURSE ---
IV fluids almost done infusing. Pt given regular insulin per MAR. Pt updated on waiting lab results and plan to recheck FSBS in approx 30 min. Pt aware of need for urine sample, call light in reach, told to page RN when able to go.
--- NOTE | 2023-11-28 10:41 | ED.GENADULT ---
HPI - General Adult General Chief complaint: Recheck/Abnormal Lab/Rx Stated complaint: high blood sugar Time Seen by Provider: 11/28/23 09:54 History of Present Illness HPI narrative: 48-year-old female with diabetes with an insulin pump presented emergency department for evaluation of elevated blood sugars over the last 24 hours. Patient reports she is using an insulin pump that is different than her primary pump. Patient states that the current pump does not have a basal rate but she has been doing manual doses of insulin. The patient was having blood sugars of greater than 500 last night. Patient has been increasing her water intake. Patient began having nausea vomiting and increased generalized weakness today. Upon arrival to the emergency department patient's blood sugars were is rating greater than 500. Related Data Home Medications Medication Instructions Recorded Confirmed aspirin 81 mg chewable tablet 81 mg PO DAILY 07/05/21 11/28/23 bupropion HCl 150 mg 24 hr tablet, 150 mg PO QAM 07/05/21 11/28/23 extended release (Wellbutrin XL) cetirizine 10 mg tablet (Zyrtec) 10 mg PO DAILY 07/05/21 11/28/23 insulin lispro 100 unit/mL See Rx Instructions .Route .COMPLEX 07/05/21 11/28/23 subcutaneous solution (Humalog U-100 Insulin) levothyroxine 100 mcg tablet 100 mcg PO DAILY 07/05/21 11/28/23 (Levoxyl) prenat.vits,vazquez,ppx-pvtu-hyuvz 1 tablet PO DAILY 07/05/21 11/28/23 valacyclovir 500 mg tablet 500 mg PO DAILY 07/05/21 11/28/23 (Valtrex) venlafaxine 75 mg capsule,extended 75 mg PO DAILY 07/05/21 11/28/23 release 24 hr (Effexor XR) atorvastatin 20 mg tablet (Lipitor) 20 mg PO DAILY 11/28/23 11/28/23 Allergies Allergy/AdvReac Type Severity Reaction Status Date / Time Penicillins Allergy Unknown Hives Verified 10/30/23 11:04 clarithromycin AdvReac Gastrointestinal Verified 10/30/23 11:04 Upset Macrolide Antibiotics AdvReac Gastrointestinal Verified 10/30/23 11:04 Upset Review of Systems Review of Systems: All systems reviewed & are unremarkable except as noted in HPI and below PMFSH Past Medical History Medical History (Updated 11/28/23 @ 15:48 by Mony Jay PA-C) Depression Hypothyroid Prior hyperthyroid Hypothyroidism Juvenile rheumatoid arthritis Type 1 diabetes mellitus Surgical History Surgical History (Updated 11/28/23 @ 15:30 by Mony Jay PA-C) History of section X2 History of loop electrosurgical excision procedure (LEEP) Social History Social History (Updated 11/28/23 @ 15:31 by Mony Jay PA-C) Social History: Surrogate medical decision maker: Ronaldo Lutz, father. Code status: Full code. Smoking status: Never smoker Alcohol intake: current Drinks per week: 4 Substance use: never Substance use type: does not use Spiritual care concerns: No Exam Narrative: APPEARANCE: Ill-appearing. HEAD: normocephalic, atraumatic. EYES: PERRLA/EOMI, conjunctivae clear. NOSE: Normal no drainage RESPIRATORY: Airway patent, respirations nonlabored. Clear to auscultation bilaterally, no rales, rhonchi, wheezing. CARDIOVASCULAR: Regular rate and rhythm without murmurs rubs or gallops. ABDOMINAL: Soft, nontender, nondistended, normal bowel sounds MUSCULOSKELETAL: Moves all extremities. Strength/ROM intact, No edema, No calf tenderness. NEURO: Alert. Cranial nerves II through XII intact. Grossly intact SKIN: Warm, dry. Normal Color Course Course Emergency Course: Patient was admitted to the ICU for DKA Vital Signs Vital signs: Vital Signs Pulse Rate 92 11/28/23 09:46 Respiratory Rate 12 11/28/23 09:46 Temperature 97.8 F 11/28/23 18:00 Pulse Rate 93 11/28/23 18:00 Respiratory Rate 18 11/28/23 18:00 Blood Pressure 107/54 L 11/28/23 18:00 Pulse Oximetry 99 11/28/23 18:00 Oxygen Delivery Room Air 11/28/23 11:02 Medical Decision Making MDM Narrative Medical decision making
[2023-11-28 11:05] LABS: Glucose Point of Care 458 mg/dl (65-105)
[2023-11-28 11:20] LABS: Phosphorus 6.3 mg/dL (2.5-4.5)
[2023-11-28 11:21] LABS: Blood Urea Nitrogen 20 mg/dL (7-17); Calcium 9.2 mg/dL (8.4-10.2); Carbon Dioxide < 5 mmol/L (22-30); Chloride 106 mmol/L (98-107); Estimated CRCL calculation 57 ml/min; Estimated Glomerular Filt Rate 53; Glucose 443 mg/dL (65-110); Potassium 5.8 mmol/L (3.4-5.0); Sodium 133 mmol/L (137-145)
[2023-11-28 11:24] LABS: Beta-Hydroxybutyrate/Acetoacetate 9.23 mmol/L (0.02-0.27); Hemoglobin A1C 9.2 % (<5.7)
[2023-11-28] MEDS: SODIUM CHLORIDE 0.9% IV 1,000 ML 999 ML IV CONT ×2 (11:42→13:05)
[2023-11-28] MEDS: INSULIN HUMAN REGULAR (*BKC) 100 UNITS in SODIUM CHLORIDE 0.9% IV 99 ML 7 UNITS IV CONT (11:45)
[2023-11-28 12:09] LABS: Appearance Urine Clear (Clear); Bacteria Urine None Seen /hpf; Bilirubin Urine Negative (Negative); Blood Urine Trace (Negative); Color Urine Yellow (Yellow); Glucose Urine UA 3+ mg/dL (Negative); Ketones Urine 4+ mg/dL (Negative); Leukocyte Esterase Ur Negative LEU/UL (Negative); Nitrate Urine Negative (Negative); Non Pathogenic Casts 0-2; Protein Urine 1+ mg/dL (Negative); RBC Urine 0-2 /hpf (0-2); Specific Grav Ur 1.025 (1.001-1.035); Squamous Epithelial Cell Urine None Seen /hpf (Few); Urobilinogen Urine 0.2 mg/dL (<2.0); WBC Urine 0-5 /hpf (0-3); pH Urine 5.5 (5.0-9.0)
[2023-11-28 12:13] LABS: Add Urine Microscopic? YES
--- NOTE | 2023-11-28 13:06 | WPDCNINT ---
Assessment and Plan Assessment and plan (1) DKA (diabetic ketoacidosis): Qualifiers: Diabetes mellitus type: type 1 Diabetes mellitus complication detail: without coma Qualified Code(s): E10.10 - Type 1 diabetes mellitus with ketoacidosis without coma Code(s): E11.10 - Type 2 diabetes mellitus with ketoacidosis without coma Status: Acute Assessment and Plan: Patient recently changed her insulin pump, it is not program to read her blood sugars and give a bolus doses -blood sugars were elevated on the night of 11/27/2023, also has nausea, vomiting, generalized weakness -patient given 2 L IV fluid bolus in the ER and started on insulin infusion per DKA protocol -I will give additional 1 L IV fluid bolus of normal saline -continue insulin infusion, will transition to long-acting insulin and sliding scale insulin once anion gap closes and CO2 improves (2) Type 1 diabetes: Qualifiers: Diabetes mellitus complication status: without complication Qualified Code(s): E10.9 - Type 1 diabetes mellitus without complications Code(s): E10.9 - Type 1 diabetes mellitus without complications Status: Acute Assessment and Plan: Patient has a history of type 1 diabetes on insulin pump -hemoglobin A1c is 9.2 9.2 this admission -will have nurse educator and dietitian evaluate the patient (3) Hyperkalemia: Code(s): E87.5 - Hyperkalemia Status: Acute Assessment and Plan: Hyperkalemia likely related to acidosis, -continue insulin infusion and IV fluids -monitor potassium levels on serial BMPs -repeat potassium levels trending down, will continue to monitor (4) Leukocytosis: Qualifiers: Leukocytosis type: unspecified Qualified Code(s): D72.829 - Elevated white blood cell count, unspecified Code(s): D72.829 - Elevated white blood cell count, unspecified Status: Acute Assessment and Plan: Stress related -continue to monitor -no signs of infection at this time (5) Hypothyroid: Qualifiers: Hypothyroidism type: unspecified Qualified Code(s): E03.9 - Hypothyroidism, unspecified Code(s): E03.9 - Hypothyroidism, unspecified Status: Acute Assessment and Plan: Will start levothyroxine in a.m. (6) Depression: Qualifiers: Depression Type: other depression Qualified Code(s): F32.89 - Other specified depressive episodes Code(s): F32.A - Depression, unspecified Status: Acute Assessment and Plan: Patient on Wellbutrin, Effexor at home will restart once she starts taking p.o. Plan DVT prophylaxis: Lovenox Stress ulcer prophylaxis: Not indicated Nutrition: Ice chips only for now, otherwise NPO Code Status: Full code Critical Care Time Spent: 47 minutes Discussed with patient updated with her condition and plan of care. She is aware that she is on insulin infusion and will be receiving IV fluids. I answered all questions Due to a high probability of clinically significant, life threatening deterioration, the patient required my highest level of preparedness to intervene emergently and I personally spent this critical care time directly and personally managing the patient. This critical care time included obtaining a history; examining the patient; pulse oximetry; ordering and review of studies; arranging urgent treatment with development of a management plan; evaluation of patient's response to treatment; frequent reassessment; and discussions with other providers. It was exclusive of separately billable procedures and treating other patients and teaching time. Please see Assessment and Plan section and the rest of the note for further information on patient assessment and treatment This dictation may have been done utilizing a voice recognition system. Attempts have been made to correct errors. However, there may be uncorrected grammatical, spelling, and recognitions errors present.
[2023-11-28 13:12] LABS: Glucose Point of Care 331 mg/dl (65-105)
--- NOTE | 2023-11-28 13:18 | ADMGEN ---
This patient, Fadia Harding, was admitted to Intensive Care Unit-9. Patient/family oriented to hospital policies and general routines including ID bracelet, bed and alarms, visiting hours, pain management, procedures, bathroom and other care routines, personal items, smoking policy, room service/diet, and visiting hours. Information on how to activate the Rapid Response Team has been discussed. Patient/Family are encouraged to report perceived risks to care and to ask questions if they do not understand what they are told or what they should do.
[2023-11-28] MEDS: DEXTROSE 5% 1,000 ML 1,000 ML 100 ML IVPB (14:36)
[2023-11-28 14:41] LABS: Glucose Point of Care 238 mg/dl (65-105)
--- NOTE | 2023-11-28 15:28 | PM.IMHP ---
H&P: HPI History of Present Illness Date/Time: 11/28/23 15:45 Chief Complaint: Nausea, vomiting, hyperglycemia. Narrative: This is a 48-year-old female with type 1 diabetes mellitus, hypothyroidism, depression, and anxiety presented to the emergency department for evaluation of nausea, vomiting, and hyperglycemia. The patient provides the following history. Last night she noticed that her glucose started to creep upwards of 500 and today she started with nausea, vomiting, and weakness. She mentions that her usual insulin pump broken that she is using a different 1. She believes that she was not getting her accurate dose of insulin due to air bubbles in the line. She had otherwise been feeling okay until yesterday. No fever, chills, sweats, cold or flu symptoms, chest pain, shortness of breath, hematemesis, diarrhea, or dysuria. In the ED: Vital signs were stable on arrival. Labs were significant for WBC count of 16.6, hemoglobin 13.9, platelet 490, sodium 131, potassium 6.5, chloride 100, carbon dioxide 6, anion gap 25, BUN 21, creatinine 1.30, glucose 557, beta hydroxybutyrate 9.23. UA was positive for 3+ glucose and 4+ ketones. She received a 2 L normal saline bolus, was started on insulin drip, and she is being admitted to the ICU in this setting for treatment of diabetic ketoacidosis. Review of Systems Review of Systems: 12 systems were reviewed and are negative except for as per HPI. [facility] Past Medical History Medical History (Updated 11/28/23 @ 23:12 by Mony Jay PA-C) Depression Graves disease Treated, now hypothyroid. Hypothyroidism Juvenile rheumatoid arthritis Type 1 diabetes mellitus Surgical History Surgical History (Updated 11/28/23 @ 15:30 by Mony Jay PA-C) History of section X2 History of loop electrosurgical excision procedure (LEEP) Social History Social History (Updated 11/28/23 @ 15:31 by Mony Jay PA-C) Social History: Surrogate medical decision maker: Ronaldo Lutz, father. Code status: Full code. Smoking status: Never smoker Alcohol intake: current Drinks per week: 4 Substance use: never Substance use type: does not use Spiritual care concerns: No Meds Home Medications and Allergies Home Medications Medication Instructions Recorded Confirmed Type aspirin 81 mg chewable tablet 81 mg PO DAILY 07/05/21 11/28/23 History bupropion HCl 150 mg 24 hr tablet, 150 mg PO QAM 07/05/21 11/28/23 History extended release (Wellbutrin XL) cetirizine 10 mg tablet (Zyrtec) 10 mg PO DAILY 07/05/21 11/28/23 History insulin lispro 100 unit/mL See Rx Instructions .Route .COMPLEX 07/05/21 11/28/23 History subcutaneous solution (Humalog U-100 Insulin) levothyroxine 100 mcg tablet 100 mcg PO DAILY 07/05/21 11/28/23 History (Levoxyl) prenat.vits,vazquez,sxq-vtxu-iptvi 1 tablet PO DAILY 07/05/21 11/28/23 History valacyclovir 500 mg tablet 500 mg PO DAILY 07/05/21 11/28/23 History (Valtrex) venlafaxine 75 mg capsule,extended 75 mg PO DAILY 07/05/21 11/28/23 History release 24 hr (Effexor XR) cyclobenzaprine 10 mg tablet 10 mg PO BID PRN muscle spasm #14 10/30/23 11/28/23 Rx tabs atorvastatin 20 mg tablet (Lipitor) 20 mg PO DAILY 11/28/23 11/28/23 History Allergies Allergy/AdvReac Type Severity Reaction Status Date / Time Penicillins Allergy Unknown Hives Verified 10/30/23 11:04 clarithromycin AdvReac Gastrointestinal Verified 10/30/23 11:04 Upset Macrolide Antibiotics AdvReac Gastrointestinal Verified 10/30/23 11:04 Upset Vital Signs Vital Signs - 24 hr 11/28/23 10:06 11/28/23 09:46 11/28/23 09:48 Temperature 97.2 F L Pulse Rate 91 92 89 Respiratory Rate 16 12 13 Blood Pressure 108/54 L 108/54 L Pulse Oximetry 100 100 Oxygen Delivery 11/28/23 10:00 11/28/23 10:15 11/28/23 10:30 Temperature Pulse Rate 91 94 96 Respiratory Rate 15 13 13 Blood Pressure Pulse Oximetry 100 100 Oxyge
[2023-11-28 15:35] LABS: Glucose Point of Care 227 mg/dl (65-105)
[2023-11-28 16:35] LABS: Glucose Point of Care 181 mg/dl (65-105)
[2023-11-28 17:32] LABS: Glucose Point of Care 170 mg/dl (65-105)
--- NOTE | 2023-11-28 18:30 | PC.NURSE ---
at 1805 severe wether alertover interc, pt moved to recliner in [place], at 1828, all clear and pt moved back to room
[2023-11-28 18:35] LABS: Anion Gap 16 mmol/L (4-12); Blood Urea Nitrogen 19 mg/dL (7-17); Calcium 9.4 mg/dL (8.4-10.2); Carbon Dioxide 10 mmol/L (22-30); Chloride 111 mmol/L (98-107); Estimated CRCL calculation 69 ml/min; Estimated Glomerular Filt Rate > 60; Glucose 188 mg/dL (65-110); Potassium 4.4 mmol/L (3.4-5.0); Sodium 137 mmol/L (137-145)
[2023-11-28 19:01] LABS: Glucose Point of Care 201 mg/dl (65-105)
[2023-11-28] MEDS: ACETAMINOPHEN 325 MG TABLET 650 MG PO (19:20)
[2023-11-28] MEDS: KCL 20 MEQ/D5/0.45% SOD CHL 1,000 ML 150 ML IV CONT (19:36)
[2023-11-28 20:11] LABS: Anion Gap 14 mmol/L (4-12); Blood Urea Nitrogen 16 mg/dL (7-17); Calcium 9.2 mg/dL (8.4-10.2); Carbon Dioxide 9 mmol/L (22-30); Chloride 110 mmol/L (98-107); Estimated CRCL calculation 69 ml/min; Estimated Glomerular Filt Rate > 60; Glucose 238 mg/dL (65-110); Potassium 4.7 mmol/L (3.4-5.0); Sodium 133 mmol/L (137-145)
[2023-11-28 20:12] LABS: Glucose Point of Care 234 mg/dl (65-105)
[2023-11-28 21:04] LABS: Glucose Point of Care 235 mg/dl (65-105)
[2023-11-28] MEDS: LACTATED RINGERS 500 ML IV CONT (21:06)
[2023-11-28 22:08] LABS: Glucose Point of Care 246 mg/dl (65-105)
[2023-11-28 22:56] LABS: Glucose Point of Care 234 mg/dl (65-105)
[2023-11-28] MEDS: SODIUM CHLORIDE 0.9% IV 1,000 ML 150 ML IV CONT (23:55)
[2023-11-29] VITALS (12 sets, daily range): BP systolic 105–136; BP diastolic 49–64; PULSE 84–99; RESP 15–20; TEMP 36.7–36.9; O2SAT 98–100; BMI 23.1
[2023-11-29 00:02] LABS: Glucose Point of Care 265 mg/dl (65-105)
[2023-11-29 00:15] LABS: Anion Gap 12 mmol/L (4-12); Blood Urea Nitrogen 13 mg/dL (7-17); Calcium 8.9 mg/dL (8.4-10.2); Carbon Dioxide 10 mmol/L (22-30); Chloride 109 mmol/L (98-107); Estimated CRCL calculation 69 ml/min; Estimated Glomerular Filt Rate > 60; Glucose 269 mg/dL (65-110); Potassium 4.5 mmol/L (3.4-5.0); Sodium 131 mmol/L (137-145)
[2023-11-29 01:02] LABS: Glucose Point of Care 262 mg/dl (65-105)
[2023-11-29 02:36] LABS: Glucose Point of Care 264 mg/dl (65-105)
[2023-11-29 03:13] LABS: Glucose Point of Care 186 mg/dl (65-105)
[2023-11-29 04:09] LABS: Glucose Point of Care 183 mg/dl (65-105)
[2023-11-29 04:34] LABS: Basophils Absolute Auto 0.1 K/mm3 (0.0-0.1); Basophils Percent Auto 0.3 % (0.2-1.2); Eosinophils Absolute Auto 0.1 K/mm3 (0-0.3); Eosinophils Percent Auto 0.4 % (0-4.4); Hematocrit 35.7 % (37.0-47.0); Hemoglobin 11.4 g/dL (12.0-15.0); Immature Granulocyte Absolute 0.04 K/mm3 (0.00-0.031); Immature Granulocyte Percent A 0.3 % (0-0.5); Lymphocytes Absolute Auto 4.29 K/mm3 (0.9-3.2); Lymphocytes Percent Auto 29.7 % (18.3-44.2); Mean Corpuscular HGB Conc 31.9 g/dl (32-36); Mean Corpuscular Hemoglobin 30.8 pg (26-34); Mean Corpuscular Volume 96.5 fl (80-100); Mean Platelet Volume 8.8 fl (7.4-10.4); Monocytes Absolute Auto 0.9 K/mm3 (0.1-0.6); Monocytes Percent Auto 6.5 % (2.6-8.5); Neutrophils Absolute Auto 9.1 K/mm3 (1.3-6.7); Neutrophils Percent Auto 62.8 % (45.5-73.1); Platelet Count Result 389 k/mm3 (150-375); Red Cell Distribution Width 13.8 % (11.5-14.5); White Blood Count 14.5 K/mm3 (4.5-10.0)
[2023-11-29 05:05] LABS: Alanine Aminotransferase 15 U/L (6-35); Albumin Level 3.5 g/dL (3.5-5.1); Alkaline Phosphatase 102 U/L (38-126); Anion Gap 9 mmol/L (4-12); Aspartate Amino Transferase 18 U/L (14-36); Bilirubin,Total 0.7 mg/dL (0.2-1.3); Blood Urea Nitrogen 11 mg/dL (7-17); Calcium 8.9 mg/dL (8.4-10.2); Carbon Dioxide 13 mmol/L (22-30); Chloride 112 mmol/L (98-107); Estimated CRCL calculation 69 ml/min; Estimated Glomerular Filt Rate > 60; Glucose 181 mg/dL (65-110); Magnesium 2.3 mg/dL (1.6-2.3); Phosphorus 1.6 mg/dL (2.5-4.5); Sodium 134 mmol/L (137-145)
[2023-11-29 05:07] LABS: Anion Gap 6 mmol/L (4-12); Blood Urea Nitrogen 10 mg/dL (7-17); Calcium 8.5 mg/dL (8.4-10.2); Carbon Dioxide 16 mmol/L (22-30); Chloride 110 mmol/L (98-107); Estimated CRCL calculation 77 ml/min; Estimated Glomerular Filt Rate > 60; Glucose 175 mg/dL (65-110); Potassium 3.8 mmol/L (3.4-5.0); Sodium 132 mmol/L (137-145)
[2023-11-29 05:12] LABS: Glucose Point of Care 195 mg/dl (65-105)
[2023-11-29] MEDS: KCL 20 MEQ/D5/0.45% SOD CHL 1,000 ML 150 ML IV CONT (06:13)
[2023-11-29 06:14] LABS: Glucose Point of Care 229 mg/dl (65-105)
[2023-11-29 07:00] LABS: Glucose Point of Care 246 mg/dl (65-105)
[2023-11-29 08:03] LABS: Glucose Point of Care 255 mg/dl (65-105)
[2023-11-29 08:23] LABS: Anion Gap 10 mmol/L (4-12); Blood Urea Nitrogen 8 mg/dL (7-17); Calcium 8.9 mg/dL (8.4-10.2); Carbon Dioxide 14 mmol/L (22-30); Chloride 111 mmol/L (98-107); Estimated CRCL calculation 69 ml/min; Estimated Glomerular Filt Rate > 60; Glucose 252 mg/dL (65-110); Potassium 4.3 mmol/L (3.4-5.0); Sodium 135 mmol/L (137-145)
[2023-11-29] MEDS: INSULIN GLARGINE (*BKC) 100 UNITS/ML 25 UNITS SUB-Q (09:03)
[2023-11-29] MEDS: POTASSIUM PHOS/SODIUM PHOS 250 MG TABLET PO (09:04)
[2023-11-29 09:43] LABS: Glucose Point of Care 233 mg/dl (65-105)
--- NOTE | 2023-11-29 09:58 | WPDINTPN ---
Progress Note: A&P Assessment and Plan (1) DKA (diabetic ketoacidosis): Qualifiers: Diabetes mellitus complication detail: without coma Diabetes mellitus type: type 1 Qualified Code(s): E10.10 - Type 1 diabetes mellitus with ketoacidosis without coma Code(s): E11.10 - Type 2 diabetes mellitus with ketoacidosis without coma Status: Acute Assessment and Plan: Patient recently changed her insulin pump, it is not program to read her blood sugars and give a bolus doses -blood sugars were elevated on the night of 11/27/2023, also has nausea, vomiting, generalized weakness -patient given 2 L IV fluid bolus in the ER plus 1 L IV fluid bolus in the ICU and started on insulin infusion per DKA protocol -anion gap is closed, patient symptomatically much better. Will transition to long-acting insulin, sliding scale insulin -patient states that she takes 10 units of regular insulin with each meals, and her basal rate is 23 units of long-acting insulin -will place patient on Lantus 25 units daily, and given short-acting insulin 10 units with each meals, insulin infusion will be discontinued per DKA protocol -will start diabetic diet (2) Type 1 diabetes: Qualifiers: Diabetes mellitus complication status: without complication Qualified Code(s): E10.9 - Type 1 diabetes mellitus without complications Code(s): E10.9 - Type 1 diabetes mellitus without complications Status: Acute Assessment and Plan: Patient has a history of type 1 diabetes on insulin pump -hemoglobin A1c is 9.2 9.2 this admission -appreciate clinical trial educator and dietitian evaluation and recommendations (3) Hyperkalemia: Code(s): E87.5 - Hyperkalemia Status: Acute Assessment and Plan: RESOLVED Hyperkalemia likely related to acidosis, -continue insulin infusion and IV fluids -monitor potassium levels on serial BMPs -POTASSIUM LEVELS WITHIN NORMAL LIMITS (4) Leukocytosis: Qualifiers: Leukocytosis type: unspecified Qualified Code(s): D72.829 - Elevated white blood cell count, unspecified Code(s): D72.829 - Elevated white blood cell count, unspecified Status: Acute Assessment and Plan: Stress related -improving -continue to monitor -no signs of infection at this time (5) Hypothyroid: Qualifiers: Hypothyroidism type: unspecified Qualified Code(s): E03.9 - Hypothyroidism, unspecified Code(s): E03.9 - Hypothyroidism, unspecified Status: Acute Assessment and Plan: Restart levothyroxine (6) Depression: Qualifiers: Depression Type: other depression Qualified Code(s): F32.89 - Other specified depressive episodes Code(s): F32.A - Depression, unspecified Status: Acute Assessment and Plan: Restart Wellbutrin, Effexor Plan DVT prophylaxis: Lovenox Stress ulcer prophylaxis: Not indicated Nutrition: Diabetic diet Code Status: Full code Critical Care Time Spent: 32 minutes Discussed with patient updated with her condition and plan of care. I answered all questions Due to a high probability of clinically significant, life threatening deterioration, the patient required my highest level of preparedness to intervene emergently and I personally spent this critical care time directly and personally managing the patient. This critical care time included obtaining a history; examining the patient; pulse oximetry; ordering and review of studies; arranging urgent treatment with development of a management plan; evaluation of patient's response to treatment; frequent reassessment; and discussions with other providers. It was exclusive of separately billable procedures and treating other patients and teaching time. Please see Assessment and Plan section and the rest of the note for further information on patient assessment and treatment This dictation may have been done utilizing a voice recognition system. Attempts h
[2023-11-29] MEDS: LEVOTHYROXINE SODIUM 100 MCG TABLET PO (11:19)
[2023-11-29] MEDS: buPROPion HCL XL (24 HR) 150 MG TABCR PO (11:19)
[2023-11-29] MEDS: VENLAFAXINE HCL XR 75 MG CAP.ER.24H PO (11:19)
[2023-11-29] MEDS: INSULIN ASPART (*BKC) 100 UNITS/ML 10 UNITS SUB-Q ×2 (11:36→17:02)
[2023-11-29 11:37] LABS: Glucose Point of Care 353 mg/dl (65-105)
--- NOTE | 2023-11-29 14:26 | PM.IMPN ---
Progress Note: A&P Assessment and Plan (1) Diabetic ketoacidosis: Code(s): E11.10 - Type 2 diabetes mellitus with ketoacidosis without coma Status: Acute (2) Acute kidney injury: Code(s): N17.9 - Acute kidney failure, unspecified Status: Acute (3) Hyperkalemia: Code(s): E87.5 - Hyperkalemia Status: Acute (4) Leukocytosis: Qualifiers: Leukocytosis type: unspecified Qualified Code(s): D72.829 - Elevated white blood cell count, unspecified Code(s): D72.829 - Elevated white blood cell count, unspecified Status: Acute (5) Type 1 diabetes mellitus: Code(s): E10.9 - Type 1 diabetes mellitus without complications Status: Acute (6) Hypothyroidism: Code(s): E03.9 - Hypothyroidism, unspecified Status: Acute (7) Depression: Qualifiers: Depression Type: other depression Qualified Code(s): F32.89 - Other specified depressive episodes Code(s): F32.A - Depression, unspecified Status: Acute Plan 48-year-old female with type 1 diabetes hypothyroidism depression anxiety presented to the ED with nausea vomiting and hyperglycemia. She reported that last night she noticed her glucose started creeping up towards 500 with the start of nausea vomiting and weakness. She mentions that her usual insulin prompt was broken and she was using a different 1. She had been feeling okay otherwise. In the ED vital signs were stable labs were significant for leukocytosis 16.6 hemoglobin of 13.9 platelet of 490. Sodium was 131 potassium 6.5 chloride 100 carbon dioxide of 6 anion gap of 25 BUN 21 creatinine 1.3 glucose of 557 beta hydroxybutyrate of 9.3. UA positive for 3+ glucose and 4+ ketones. She received IV fluid resuscitation was started on insulin drip and was admitted to the ICU for further treatment. Workup consistent with diabetic ketoacidosis with hyperglycemia acidosis ketonuria and elevated anion gap. DKA protocol was continued and insulin drip has been discontinued this a.m.. Has been transition to Lantus lispro Continue to monitor Accu-Cheks AC and HS and adjust dose as needed Insulin pump failure need to go back to her padded box sewer for further evaluation until then will transition to Lantus lispro basal bolus insulin regimen Hyperkalemia related to acidosis resolved now Hypothyroidism on levothyroxine Type 1 diabetes A1c came back at 9.2 Leukocytosis likely stress related no signs of infection Anxiety depression home medication DVT prophylaxis Lovenox Code status full code Subjective Date/time seen: 11/29/23 14:26 Interval history: Feels much better now. No nausea vomiting. Tolerating diet. Off drip earlier today. Received 25 units of Lantus this a.m.. Reports had some issue with the pump Review of Systems Review of Systems: All systems reviewed & are unremarkable except as noted in HPI and below Exam Narrative: General: Pleasant female in no acute distress HEENT:? Pupils are equal and reactive, sclera is clear, dry oral mucosa Neck:? Supple Respiratory:? Clear to auscultation bilaterally, no wheezing, adequate air entry Cardiac:? S1-S2 normal, regular rate and rhythm Abdomen:? Soft, nontender, nondistended, normoactive bowel sounds Extremities:? No edema, cyanosis or clubbing, palpable pedal pulses bilaterally Neuro:? Patient is awake, alert, oriented x3, able to answer questions appropriately and follows simple commands in all extremities Skin:? Warm and dry Psych:? Normal mentation and affect Objective Data Vital Signs Vital Signs: Vital Signs - 24 hr 11/28/23 16:00 11/28/23 16:00 11/28/23 16:18 Temperature 98 F 98.0 F Pulse Rate 94 94 96 Respiratory Rate 15 16 Blood Pressure 112/56 L 112/56 L Pulse Oximetry 100 95 Oxygen Delivery 11/28/23 18:00 11/28/23 18:00 11/28/23 19:56 Temperature 97.8 F 98.3 F Pulse Rate 89 93 92 Respiratory Rate 18 14 Blood Pressure 107/54 L 113/50
[2023-11-29 16:45] LABS: Glucose Point of Care 217 mg/dl (65-105)
[2023-11-29 20:41] LABS: Glucose Point of Care 169 mg/dl (65-105)
--- NOTE | 2023-11-29 22:47 | PC.NURSE ---
Pt transferred to [facility] with all belongings per wheelchair with RN. Report received prior to transfer.
--- NOTE | 2023-11-30 04:11 | PC.NURSE ---
11/29/23 22:15 Patient and all belongings transferred to room 260.
[2023-11-30 04:37] LABS: Basophils Percent Auto 0.5 % (0.2-1.2); Eosinophils Absolute Auto 0.1 K/mm3 (0-0.3); Eosinophils Percent Auto 1.2 % (0-4.4); Hematocrit 38.7 % (37.0-47.0); Hemoglobin 12.4 g/dL (12.0-15.0); Immature Granulocyte Absolute 0.03 K/mm3 (0.00-0.031); Immature Granulocyte Percent A 0.4 % (0-0.5); Lymphocytes Absolute Auto 3.79 K/mm3 (0.9-3.2); Lymphocytes Percent Auto 44.5 % (18.3-44.2); Mean Corpuscular Hemoglobin 31.3 pg (26-34); Mean Corpuscular Volume 97.7 fl (80-100); Mean Platelet Volume 8.6 fl (7.4-10.4); Monocytes Absolute Auto 0.6 K/mm3 (0.1-0.6); Monocytes Percent Auto 7.2 % (2.6-8.5); Neutrophils Absolute Auto 3.9 K/mm3 (1.3-6.7); Neutrophils Percent Auto 46.2 % (45.5-73.1); Platelet Count Result 344 k/mm3 (150-375); Red Blood Count 3.96 M/mm3 (4.2-5.4); Red Cell Distribution Width 14.2 % (11.5-14.5); White Blood Count 8.5 K/mm3 (4.5-10.0)
[2023-11-30 04:48] LABS: Alanine Aminotransferase 16 U/L (6-35); Albumin Level 3.7 g/dL (3.5-5.1); Alkaline Phosphatase 83 U/L (38-126); Anion Gap 4 mmol/L (4-12); Aspartate Amino Transferase 21 U/L (14-36); Bilirubin,Total 0.6 mg/dL (0.2-1.3); Blood Urea Nitrogen 10 mg/dL (7-17); Calcium 8.6 mg/dL (8.4-10.2); Carbon Dioxide 24 mmol/L (22-30); Chloride 107 mmol/L (98-107); Estimated CRCL calculation 77 ml/min; Estimated Glomerular Filt Rate > 60; Glucose 223 mg/dL (65-110); Magnesium 2.2 mg/dL (1.6-2.3); Potassium 3.6 mmol/L (3.4-5.0); Sodium 135 mmol/L (137-145)
[2023-11-30 06:00] VITALS: BP 112/61; PULSE 79; RESP 18; TEMP 36.2; O2SAT 97
[2023-11-30] MEDS: LEVOTHYROXINE SODIUM 100 MCG TABLET PO (06:26)
[2023-11-30 08:24] LABS: Glucose Point of Care 270 mg/dl (65-105)
[2023-11-30] MEDS: buPROPion HCL XL (24 HR) 150 MG TABCR PO (09:40)
[2023-11-30] MEDS: INSULIN GLARGINE (*BKC) 100 UNITS/ML 25 UNITS SUB-Q (09:40)
[2023-11-30] MEDS: VENLAFAXINE HCL XR 75 MG CAP.ER.24H PO (09:40)
[2023-11-30] MEDS: INSULIN ASPART (*BKC) 100 UNITS/ML 10 UNITS SUB-Q (09:41)
--- NOTE | 2023-11-30 11:25 | PM.DS ---
DS: Admitting Diagnosis Discharge Date 11/30/2023 Admitting Diagnosis Nausea vomiting DS: Discharge Diagnosis Discharge Diagnosis (1) Diabetic ketoacidosis: Code(s): E11.10 - Type 2 diabetes mellitus with ketoacidosis without coma Status: Acute (2) Acute kidney injury: Code(s): N17.9 - Acute kidney failure, unspecified Status: Acute (3) Hyperkalemia: Code(s): E87.5 - Hyperkalemia Status: Acute (4) Leukocytosis: Qualifiers: Leukocytosis type: unspecified Qualified Code(s): D72.829 - Elevated white blood cell count, unspecified Code(s): D72.829 - Elevated white blood cell count, unspecified Status: Acute (5) Type 1 diabetes mellitus: Code(s): E10.9 - Type 1 diabetes mellitus without complications Status: Acute (6) Hypothyroidism: Code(s): E03.9 - Hypothyroidism, unspecified Status: Acute (7) Depression: Qualifiers: Depression Type: other depression Qualified Code(s): F32.89 - Other specified depressive episodes Code(s): F32.A - Depression, unspecified Status: Acute DS: Summary Hospital Course Hospital Course: 48-year-old female with type 1 diabetes hypothyroidism depression anxiety presented to the ED with nausea vomiting and hyperglycemia.? She reported that last night she noticed her glucose started creeping up towards 500 with the start of nausea vomiting and weakness.? She mentions that her usual insulin prompt was broken and she was using a different 1.? She had been feeling okay otherwise. In the ED vital signs were stable labs were significant for leukocytosis 16.6 hemoglobin of 13.9 platelet of 490.? Sodium was 131 potassium 6.5 chloride 100 carbon dioxide of 6 anion gap of 25 BUN 21 creatinine 1.3 glucose of 557 beta hydroxybutyrate of 9.3.? UA positive for 3+ glucose and 4+ ketones.? She received IV fluid resuscitation was started on insulin drip and was admitted to the ICU for further treatment.? Workup consistent with diabetic ketoacidosis with hyperglycemia acidosis ketonuria and elevated anion gap.? DKA protocol was continued and insulin drip has been discontinued and transitioned to Lantus lispro. Until her pump can be evaluated as an outpatient she will be switched to Lantus lispro basal bolus insulin regimen. Continue to monitor Accu-Cheks AC and HS and adjust dose as needed Hyperkalemia related to acidosis resolved now Hypothyroidism on levothyroxine Type 1 diabetes A1c came back at 9.2 Leukocytosis likely stress related no signs of infection this has resolved Anxiety depression home medication DVT prophylaxis Lovenox Code status full code Time Spent with Patient Time attestation: Total time spent providing and/or coordinating discharge services: 32 minutes Exam Narrative: General: Pleasant female in no acute distress HEENT:? Pupils are equal and reactive, sclera is clear, dry oral mucosa Neck:? Supple Respiratory:? Clear to auscultation bilaterally, no wheezing, adequate air entry Cardiac:? S1-S2 normal, regular rate and rhythm Abdomen:? Soft, nontender, nondistended, normoactive bowel sounds Extremities:? No edema, cyanosis or clubbing, palpable pedal pulses bilaterally Neuro:? Patient is awake, alert, oriented x3, able to answer questions appropriately and follows simple commands in all extremities Skin:? Warm and dry Psych:? Normal mentation and affect DS: Data Data Completed and Pending Labs on day of discharge: Labs from last 24 hours 11/30/23 11/30/23 11/29/23 08:16 04:22 20:33 WBC 8.5 RBC 3.96 L Hgb 12.4 Hct 38.7 MCV 97.7 MCH 31.3 MCHC 32.0 RDW 14.2 Plt Count 344 MPV 8.6 Immature Gran % (Auto) 0.4 Neut % (Auto) 46.2 Lymph % (Auto) 44.5 H [place] % (Auto) 7.2 Eos % (Auto) 1.2 Baso % (Auto) 0.5 Lymph # (Auto) 3.79 H [place]man # (Auto) 0.6 Eos # (Auto) 0.1 Baso # (Auto) 0.0 Abs Immat Gran (auto) 0.03 Abso
== END 2023-11-30 12:10 | disposition home or self-care (01) | DRG 639 ==
LOC: ANHED 11:38 → ANHICU 12:15 → ANH2MED 11-30 09:53 → ANHICU 12-03 11:49
PROVIDERS: Internal Medicine; Physician Assistant; Admitting Provider Family Medicine; Emergency Provider Emergency Medicine; PCP Internal Medicine; Visit Provider Internal Medicine
DX: E10.10 Type 1 diabetes mellitus with ketoacidosis without coma (principal); D72.829 Elevated white blood cell count, unspecified; E03.9 Hypothyroidism, unspecified; F32.A Depression, unspecified; M08.00 Unspecified juvenile rheumatoid arthritis of unspecified site; Z96.41 Presence of insulin pump (external) (internal); E87.5 Hyperkalemia
CPT/HCPCS: 36415; 36600; 80048; 80053; 81001; 82010; 82375; 82805; 82948; 83036; 83050; 83735; 84100; 84443; 85025; 96361; 96374; 96375; 99291; A9270; J1815; J2405; J3480; J7030; J7070; J7120